=== PATIENT | female | born 1995 | race Caucasian/White ===

== ENCOUNTER 2025-01-25 10:39 | Emergency (ER) | payer SELFPAY ==
[2025-01-25] MEDS ORDERED: Ibuprofen 800 MG TAB ONE (11:43)
== END 2025-01-25 15:40 | disposition home or self-care (01) ==
LOC: ERS 10:39
DX: M25.511 Pain in right shoulder (principal); M54.2 Cervicalgia; F17.200 Nicotine dependence, unspecified, uncomplicated
CPT/HCPCS: 72040; 99283